=== PATIENT | female | born 2005 | race Caucasian/White ===

== ENCOUNTER 2024-07-21 15:18 | Emergency (ER) | payer OTHER ==
[~2024-07-21] VITALS: Ht 160 cm; Wt 51.3 kg
[2024-07-21 15:34] VITALS: TEMP 99.6
[2024-07-21] MEDS ORDERED: FLUO-290 PO (15:37)
[2024-07-21 17:00] LABS: BASO # 0.1 10^3/uL (0.0-0.2); BASO % 0.7 % (0.0-1.0); EOS # 0.1 10^3/uL (0.0-0.5); EOS % 0.8 % (0.0-3.0); HEMATOCRIT 37.7 % (36.0-47.0); HEMOGLOBIN 11.4 g/dl (12.0-15.5); LYMPH # 2.5 10^3/uL (1.5-5.0); LYMPH % 22.8 % (24.0-44.0); MEAN CORPUSCULAR HEMOGLOBIN 25.1 pg (27.0-33.0); MEAN CORPUSCULAR HGB CONC 30.2 g/dl (32.0-36.5); MEAN CORPUSCULAR VOLUME 82.9 fl (80.0-96.0); MONO % 8.8 % (2.0-8.0); NEUTROPHILS # 7.3 10^3/uL (1.5-8.5); NEUTROPHILS % 66.5 % (36.0-66.0); PLATELET COUNT, AUTOMATED 413 10^3/uL (150-450); RED BLOOD COUNT 4.55 10^6/uL (4.00-5.40)
[2024-07-21 17:30] LABS: HCG, SERUM QUALITATIVE NEGATIVE (NEGATIVE)
[2024-07-21 17:31] LABS: BLOOD UREA NITROGEN 11 MG/DL (9-23); CALCIUM LEVEL 10.2 MG/DL (8.5-10.1); CARBON DIOXIDE LEVEL 22 MMOL/L (20-31); CHLORIDE LEVEL 109 MMOL/L (98-107); CREATININE FOR GFR 0.58 MG/DL (0.55-1.30); GLOMERULAR FILTRATION RATE > 90.0 (>60); GLUCOSE, FASTING 97 MG/DL (60-100); POTASSIUM SERUM 4.3 MMOL/L (3.5-5.1); SODIUM LEVEL 141 MMOL/L (136-145)
[2024-07-21] MEDS: NS (Normal Saline) 0.9% 1,000 ML IV ONE (20:00)
[2024-07-21 20:19] LABS: ALBUMIN 4.2 G/DL (3.2-5.2); ALKALINE PHOSPHATASE 63 U/L (35-104); ALT/SGPT 17 U/L (7.0-40); AST/SGOT 25 U/L (<34); BILIRUBIN,DIRECT < 0.1 MG/DL (<0.4); BILIRUBIN,TOTAL 0.3 MG/DL (0.3-1.2); CK-MB VALUE MASS < 1.0 NG/ML (<3.6); TOTAL PROTEIN 7.1 G/DL (5.7-8.2)
[2024-07-21 20:21] LABS: FREE T4 1.16 NG/DL (0.83-1.43); THYROID STIMULATING HORMONE 2.226 uIU/ML (0.48-4.17)
[2024-07-21 20:24] LABS: CPK CREATINE PHOSPHOKINASE 134 U/L (34-145); MB/CK RELATIVE INDEX 0.74 (< OR =4)
[2024-07-21 22:10] LABS: CK-MB VALUE MASS < 1.0 NG/ML (<3.6)
[2024-07-21 22:11] LABS: CPK CREATINE PHOSPHOKINASE 102 U/L (34-145); MB/CK RELATIVE INDEX 0.98 (< OR =4)
[2024-07-21 22:15] VITALS: O2SAT 99
[2024-07-21 22:18] VITALS: BP 115/60
== END 2024-07-21 23:10 | disposition home or self-care (01) ==
LOC: M ED 15:18
DX: R55 Syncope and collapse (principal); F41.9 Anxiety disorder, unspecified; Z79.899 Other long term (current) drug therapy